=== PATIENT | male | born 1980 | race Caucasian/White ===

== ENCOUNTER → 2018-05-17 09:09 | Outpatient (CLI) | payer BC, SELFPAY ==
[2018-05-17 09:38] LABS: INR 2.5 (1.0-3.5); Prothrombin Time 23.5 sec (9.3-10.8)
== END ==
PROVIDERS: PCP Family Medicine; Visit Provider Family Medicine
DX: Z95.2 Presence of prosthetic heart valve (principal); Z79.01 Long term (current) use of anticoagulants
CPT/HCPCS: 36415; 85610

== ENCOUNTER → 2018-05-31 02:29 | Outpatient (CLI) | payer BC, SELFPAY ==
[2018-05-31 09:34] LABS: INR 2.9 (1.0-3.5); Prothrombin Time 26.9 sec (9.3-10.8)
== END ==
PROVIDERS: PCP Family Medicine; Visit Provider Family Medicine
DX: Z79.01 Long term (current) use of anticoagulants (principal); Z95.2 Presence of prosthetic heart valve
CPT/HCPCS: 36415; 85610

== ENCOUNTER 2018-06-02 14:49 | Emergency (ER) | payer BC, SELFPAY ==
[2018-06-02] VITALS (14 sets, daily range): BP systolic 117–143; BP diastolic 77–90; PULSE 71–92; RESP 18; TEMP 36.6; O2SAT 95–98
[2018-06-02] MEDS: FAMOTIDINE 20 MG/50 ML BAG 50 MG (15:00)
[2018-06-02] MEDS: Normal Saline 1,000 ML 1000 ML IV (15:00)
[2018-06-02] MEDS: methylPREDNISolone SUCC 125 MG VIAL (15:01)
--- NOTE | 2018-06-02 15:03 | ED.GENADUL_ITS ---
Disposition Clinical Impression: Allergy to bee sting Disposition: HOME Condition: Improving Instructions: Insect Bite or Sting (ED), General Allergic Reaction (ED) Additional Instructions: Drink plenty of fluids and get plenty of rest. Try to continue the steroids until finished. If you develop side effects such as jittery feeling or difficulty sleeping and your rash and symptoms are completely resolved, you can consider stopping the steroid after 3 days. Take Benadryl as needed and directed for itching. Follow-up with your primary care doctor within the next week for re-evaluation and recheck of your INR. Return to the emergency department with any worsening or new concerning symptoms. Prescriptions: Prednisone 20 mg PO DIRECTED PRN #12 tablet PRN Reason: Medical Decision Making - Medical Decision Making 1500 -- 37-year-old male with history of aortic valve replacement and aortic aneurysm who presents with pruritic rash, facial swelling and funny feeling in throat after bee sting to lower extremities 1 hour prior to arrival. No history of anaphylaxis to bee stings. Took Benadryl 50 mg prior to arrival. No difficulty swallowing or vomiting. Patient speaking in full sentences, airway intact and he appears in no acute distress. Lungs clear to auscultation. Vitals within normal limits. At this point I do not see any indication for epinephrine. Will place an IV, bolus IV fluids, and give Pepcid and Solu-Medrol IV and reassess. 1600 -- patient feels much better. Rash is improving and erythema on face near resolved. Explained to patient we will observe for approximately another hour to make sure symptoms are continuing to improve and he is agreeable. 1705 -- patient feels much better and feels good to go home. Lungs clear to auscultation. Vitals within normal limits. Good oxygen saturation. We will send home with prescription of prednisone. Patient had initially stated that he has had a jittery feeling after taking prednisone for a previous bee sting. Explained to him that this can be a common reaction but considering the benefit versus risk ratio it would be important for him to take the prescription as long as possible for allergic reaction and he is agreeable. There also appears to be an interaction with prednisone and Coumadin but it could increase or decrease the INR. Patient states he recently had his INR checked and it was normal. States his next check is 1 month from now. We will also recommend he continue the prednisone considering the benefit versus risk ratio for allergic reaction. Patient is instructed to follow-up with his primary care doctor within the next week for reevaluation and to recheck his INR. He is instructed to return immediately with any concerns. History of Present Illness - General Chief complaint: Allergic Stated complaint: ALLERGIC REACTION/BEE Time Seen by Provider: 06/02/18 15:02 Source: patient Mode of arrival: ambulatory Limitations: no limitations - History of Present Illness Initial comments: Patient is a 37-year-old male who presents to the ED with complaint of itchy rash after multiple bee stings 1 hour prior to arrival. Patient states he thinks he was stung by 3 yellow jackets in his bilateral lower extremities. Patient states shortly after he developed itching all over as well as rash on his forearms, and redness to face and neck. He is also complaining of a funny feeling in his throat. He denies difficulty swallowing, difficulty breathing, nausea, vomiting or syncope. Patient states he has had previous similar allergy to bee stings with rash but not any throat or respiratory symptoms. Denies history of anaphylaxis to bee stings. Denies having an EpiPen. - Related Data Aspirin 81 mg PO DAILY tab-cap 03/29/18 Ibuprofen 800 mg PO PRN 03/29/18 Metoprolol [Lopressor] 50 mg PO BID tab-cap 03/29/18 Sennosides/Docusate Sodium [Senna-Docusate Sodium Tablet] 2 tab-cap PO DAILY PRN tab-cap 03/29/18 Metoprolol Tartrate 100 mg PO BID #180 tab-cap 04/23/18 Warfarin Sodium 0 PO as directed #180 tab-cap 04/23/18 Warfarin Sodium 2.5 mg PO DIR #100 tab 04/23/18 Prednisone 20 mg PO DIRECTED PRN #12 tablet 06/02/18 Allergies Allergy/AdvReac Type Severity Reaction Status Date / Time No Known Allergies Allergy Unverified 03/29/18 13:47 Review of Systems Constitutional: denies: chills, fever Eyes: denies: eye pain ENT: denies: ear pain, dental pain Respiratory: denies: cough, shortness of breath Cardiovascular: denies: chest pain, dyspnea on exertion Gastrointestinal: denies: abdominal pain, nausea, vomiting Genitourinary: denies: urgency, dysuria, frequency Musculoskeletal: denies: back pain Skin: denies: rash, lesions Neurological: denies: headache, weakness, numbness Past Medical History - Past Medical History Bicuspid aortic valve, aortic aneurysm Surgical history: other (AV replacement) - Social History Smoking status: never smoker Alcohol use: occasionally Drug use: none General Exam - General Limitations: no limitations General appearance: alert, in no apparent distress - Eye Eye exam: Present: PERRL, EOMI - ENT ENT exam: Present: normal orophraynx, mucous membranes moist, TM's normal bilaterally - Neck Neck exam: Present: normal inspection - Respiratory Respiratory exam: Present: normal lung sounds bilaterally. Absent: respiratory distress, wheezes, rales, rhonchi, stridor - Cardiovascular Cardiovascular Exam: Present: regular rate, normal rhythm. Absent: bradycardia , tachycardia - GI/Abdominal GI/Abdominal exam: Present: soft, normal bowel sounds. Absent: distended, tenderness, guarding, rebound, rigid - Neurological Exam Neurological exam: Present: alert, oriented X3 - Psychiatric Psychiatric exam: Present: normal affect - Skin Skin exam: Present: warm, dry, intact, other (Erythema noted to face and neck. Urticaria noted to bilateral palms and volar distal forearms.) Course Vital Signs - 24 hr 06/02/18 14:52 Temperature 97.9 F Pulse 92 H Respiratory 18 Rate Blood Pressure 143/90 Pulse Oximetry 95
== END 2018-06-02 17:15 | disposition home or self-care (01) ==
PROVIDERS: Emergency Provider Physician Assistant; PCP Family Medicine
DX: T63.411A Toxic effect of venom of centipedes and venomous millipedes, accidental (unintentional), initial encounter (principal); R21 Rash and other nonspecific skin eruption; R60.0 Localized edema; L53.9 Erythematous condition, unspecified; Z91.030 Bee allergy status
CPT/HCPCS: 36416; 82962; 96361; 96365; 96375; 99284; J2930

== ENCOUNTER 2018-06-09 11:04 | Outpatient (RCR) | payer BC, SELFPAY | END 2018-06-11 23:59 | disposition home or self-care (01) | LOC: CR 11:04 | PROVIDERS: PCP Family Medicine; Visit Provider Family Medicine | DX: Z95.2 Presence of prosthetic heart valve (principal); Z51.89 Encounter for other specified aftercare | CPT/HCPCS: S9472 ==

== ENCOUNTER 2018-06-17 12:11 | Outpatient (RCR) | payer BC, SELFPAY | END 2018-07-11 23:59 | disposition home or self-care (01) | LOC: CR 12:11 | PROVIDERS: PCP Family Medicine; Visit Provider Family Medicine | DX: Z51.89 Encounter for other specified aftercare (principal); Z95.2 Presence of prosthetic heart valve ==

== ENCOUNTER 2018-06-30 08:47 | Outpatient (CLI) | payer BC, SELFPAY ==
[2018-06-30 10:27] LABS: INR 2.6 (1.0-3.5); Prothrombin Time 24.6 sec (9.3-10.8)
== END 2018-06-30 09:07 ==
PROVIDERS: PCP Family Medicine; Visit Provider Family Medicine
DX: Z95.2 Presence of prosthetic heart valve (principal); Z79.01 Long term (current) use of anticoagulants
CPT/HCPCS: 36415; 85610

== ENCOUNTER 2018-07-09 13:20 | Outpatient (RCR) | payer BC, SELFPAY | END 2018-07-11 23:59 | disposition home or self-care (01) | LOC: CR 13:20 | PROVIDERS: PCP Family Medicine; Visit Provider Family Medicine | DX: Z95.2 Presence of prosthetic heart valve (principal); Z51.89 Encounter for other specified aftercare | CPT/HCPCS: S9472 ==

== ENCOUNTER 2018-08-02 11:49 | Outpatient (RCR) | payer BC, SELFPAY | END 2018-08-11 23:59 | disposition home or self-care (01) | LOC: CR 11:49 | PROVIDERS: PCP Family Medicine; Visit Provider Family Medicine | DX: Z95.2 Presence of prosthetic heart valve (principal); Z51.89 Encounter for other specified aftercare | CPT/HCPCS: S9472 ==

== ENCOUNTER 2018-10-08 08:02 | Outpatient (CLI) | payer BC, SELFPAY ==
[2018-10-08 08:52] LABS: INR 3.1 (1.0-3.5); Prothrombin Time 31.8 sec (9.3-11.0)
== END 2018-10-08 08:22 ==
PROVIDERS: PCP Family Medicine; Visit Provider Family Medicine
DX: Z95.2 Presence of prosthetic heart valve (principal); Z79.01 Long term (current) use of anticoagulants
CPT/HCPCS: 36415; 85610

== ENCOUNTER 2018-12-15 07:44 | Outpatient (CLI) | payer BC, SELFPAY ==
[2018-12-15 08:30] LABS: Prothrombin Time 29.8 sec (9.3-11.0)
[2018-12-15 08:35] LABS: INR 2.9 (0.9-1.1)
== END 2018-12-15 08:04 ==
PROVIDERS: PCP Family Medicine; Visit Provider Family Medicine
DX: Z95.2 Presence of prosthetic heart valve (principal); Z79.01 Long term (current) use of anticoagulants
CPT/HCPCS: 36415; 85610

== ENCOUNTER 2019-01-27 07:37 | Outpatient (CLI) | payer BC, SELFPAY ==
[2019-01-27 08:18] LABS: INR 2.1 (0.9-1.1); Prothrombin Time 21.2 sec (9.3-11.0)
== END 2019-01-27 07:57 ==
PROVIDERS: PCP Family Medicine; Visit Provider Family Medicine
DX: Z79.01 Long term (current) use of anticoagulants (principal); Z95.2 Presence of prosthetic heart valve
CPT/HCPCS: 36415; 85610

== ENCOUNTER 2019-02-14 07:45 | Outpatient (CLI) | payer BC, SELFPAY ==
[2019-02-14 08:09] LABS: INR 2.5 (0.9-1.1); Prothrombin Time 25.5 sec (9.3-11.0)
== END 2019-02-14 08:05 ==
PROVIDERS: PCP Family Medicine; Visit Provider Family Medicine
DX: Z95.2 Presence of prosthetic heart valve (principal); Z79.01 Long term (current) use of anticoagulants
CPT/HCPCS: 36415; 85610

== ENCOUNTER 2019-05-30 07:27 | Outpatient (CLI) | payer BC, SELFPAY ==
[2019-05-30 08:27] LABS: INR 3.7 (0.9-1.1); Prothrombin Time 37.6 sec (9.3-11.0)
== END 2019-05-30 07:47 ==
PROVIDERS: PCP Family Medicine; Visit Provider Family Medicine
DX: Z95.2 Presence of prosthetic heart valve (principal); Z79.01 Long term (current) use of anticoagulants
CPT/HCPCS: 36415; 85610

== ENCOUNTER 2019-06-10 07:00 | Outpatient (CLI) | payer BC, SELFPAY ==
[2019-06-10 07:48] LABS: INR 2.2 (0.9-1.1); Prothrombin Time 22.3 sec (9.3-11.0)
== END 2019-06-10 07:20 ==
PROVIDERS: PCP Family Medicine; Visit Provider Family Medicine
DX: Z79.01 Long term (current) use of anticoagulants (principal)
CPT/HCPCS: 36415; 85610

== ENCOUNTER 2019-07-08 07:44 | Outpatient (CLI) | payer BC, SELFPAY ==
[2019-07-08 08:53] LABS: INR 2.8 (0.9-1.1); Prothrombin Time 27.4 sec (9.3-11.0)
== END 2019-07-08 08:04 ==
PROVIDERS: PCP Family Medicine; Visit Provider Family Medicine
DX: Z79.01 Long term (current) use of anticoagulants (principal)
CPT/HCPCS: 36415; 85610

== ENCOUNTER 2019-09-23 07:44 | Outpatient (CLI) | payer BC, SELFPAY ==
[2019-09-23 08:40] LABS: INR 3.5 (0.9-1.1); Prothrombin Time 34.2 sec (9.3-11.0)
== END 2019-09-23 08:04 ==
PROVIDERS: PCP Family Medicine; Visit Provider Family Medicine
DX: Z79.01 Long term (current) use of anticoagulants (principal); Z95.2 Presence of prosthetic heart valve
CPT/HCPCS: 36415; 85610

== ENCOUNTER 2019-11-25 07:52 | Outpatient (CLI) | payer BC, SELFPAY ==
[2019-11-25 08:25] LABS: INR 2.3 (0.9-1.1); Prothrombin Time 22.3 sec (9.3-11.0)
== END 2019-11-25 08:12 ==
PROVIDERS: PCP Family Medicine; Visit Provider Family Medicine
DX: Z95.2 Presence of prosthetic heart valve (principal); Z79.01 Long term (current) use of anticoagulants
CPT/HCPCS: 36415; 85610

== ENCOUNTER 2019-12-16 07:43 | Outpatient (CLI) | payer BC, SELFPAY ==
[2019-12-16 08:16] LABS: INR 3.1 (0.9-1.1); Prothrombin Time 30.7 sec (9.3-11.0)
== END 2019-12-16 08:03 ==
PROVIDERS: PCP Family Medicine; Visit Provider Family Medicine
DX: Z79.01 Long term (current) use of anticoagulants (principal); Z95.2 Presence of prosthetic heart valve
CPT/HCPCS: 36415; 85610

== ENCOUNTER 2020-05-03 02:17 | Outpatient (CLI) | payer BC, SELFPAY | END 2020-05-03 02:37 | PROVIDERS: PCP Nurse Practitioner Family; Visit Provider Nurse Practitioner Family | DX: I45.9 Conduction disorder, unspecified (principal); I47.1 Supraventricular tachycardia; I49.3 Ventricular premature depolarization | CPT/HCPCS: 0296T ==

== ENCOUNTER 2020-05-07 08:59 | Emergency (ER) | payer BC, SELFPAY ==
[2020-05-07 09:04] VITALS: BP 158/103; PULSE 67; RESP 20; TEMP 36.2; O2SAT 100
--- NOTE | 2020-05-07 09:05 | ED.GENADUL_ITS ---
Discharge Plan Disposition Patient Disposition: HOME Condition: Improving Discharge Details Chief Complaint: Laceration Clinical Impression: Laceration of leg, left Primary Care Provider: Umu Pascual ED Provider: Qamar Fortune Home Meds and New Rx's Prescriptions: New cephalexin 500 mg capsule 500 mg PO TID 3 Days Qty: 9 RF: 0 Continued warfarin 2.5 mg tablet See Rx Instructions PO DAILY RF: 0 aspirin 81 MG tablet,chewable 81 mg PO DAILY RF: 0 metoprolol tartrate 100 mg tablet 100 mg PO BID Qty: 180 RF: 4 warfarin 5 mg tablet See Rx Instructions PO DAILY Qty: 90 RF: 8 Discharge Instructions Instructions: Laceration (ED) Additional Instructions: Return on morning for wound check. Your INR today was 3.6. Please take antibiotics as prescribed. Return sooner if you develop a fever, foul-smelling discharge or any other acute concerns. May elevate to reduce discomfort. You are to be nonweightbearing with use of crutches until being reevaluated on . Medical Decision Making 39-year-old male who was struck in the left anterior tibia by a heavy metal door, suffering a large laceration. Patient was as anesthetized, liberally irrigated, examined in a bloodless field without evidence of foreign body. He was closed with 19 total sutures, 9 of which were horizontal mattress sutures. I placed him in a posterior splint for immobilization for 3 days and will have him return for splint removal and wound check on this . He is given Keflex for 3 days as I feel this is an inherently contaminated wound. HPI General Mode of arrival: ambulatory . Date/Time Provider Initiated Documentation: 05/07/20 09:03 . Limitations to Documentation: no limitations . Information obtained by: patient . History of Present Illness 39 year old M presents to the emergency department with the chief complaint of Left anterior tibial laceration , described as moderate, Quality is described as dull and constant, and is localized to the left and lower extremity. Patient reports no radiation. Patient started experiencing this minute(s) and it has been constant. No relieving factors improve symptom(s), No exacerbating factors reported . Patient notes denies denies other symptoms and headaches. Patient did receive the following treatments prior to arrival, none Related Data Home Medications Medication Instructions Recorded Confirmed aspirin 81 mg PO DAILY tab-cap 03/29/18 05/07/20 warfarin 2.5 mg tablet See Rx Instructions PO DAILY 06/23/18 05/07/20 metoprolol tartrate 100 mg tablet 100 mg PO BID #180 tab 08/15/19 05/07/20 warfarin 5 mg tablet See Rx Instructions PO DAILY #90 12/30/19 05/07/20 tab cephalexin 500 mg PO TID 3 Days #9 cap 05/07/20 Previous Rx's Medication Instructions Recorded metoprolol tartrate 100 mg tablet 100 mg PO BID #180 tab 08/15/19 warfarin 5 mg tablet See Rx Instructions PO DAILY #90 12/30/19 tab cephalexin 500 mg PO TID 3 Days #9 cap 05/07/20 Allergies Allergy/AdvReac Type Severity Reaction Status Date / Time No Known Allergies Allergy Unverified 05/07/20 09:08 Review of Systems Narrative: No other injury. States he believes his tetanus is up-to-date. No numbness or tingling. 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 Father , at 71 from multiple myeloma Heart disease Multiple myeloma Hypertension Sister No problems noted. Grandfather Diabetes Essential hypertension Personal history of malignant neoplasm PROSTATE Grandfather Personal history of malignant neoplasm LUNG Grandmother Personal history of malignant neoplasm LUNG/BREAST Grandmother Diabetes Son No problems noted. Son No problems noted. Daughter No problems noted. Maternal Grandfather , at 90 Diabetes Maternal Grandmother , at 85 of lung cancer Lung cancer Paternal Grandfather , at 75 of lung cancer Lung cancer Diabetes Paternal Grandmother , at 85 Diabetes Social History (Updated 04/30/20 @ 14:44 by Anjelica Beyer) Smoking/Tobacco Use Status: Former Tobacco Use Quit Date: 10/12/06 Tobacco: How many years used: 3 Alcohol Intake: current Alcohol Intake frequency: a few times a week Alcohol type: beer Drug use: Never Substance use type: does not use Caregiver/Support person: No Communication Needs: None Do you need help understanding health information?: Never Pets and animals: Yes Pets and animals: dog(s) Sexually active: Yes Do you think of yourself as: straight/heterosexual What is your relationship status?: How often do you talk on the phone with friends or family?: once per week How often do you get together with friends or relatives?: twice per week How often do you attend confucianism or mormonism services?: 4 or more times per year Do you belong to any clubs or organized social groups?: yes Panel score (0-1 are the most socially isolated patients): 4 What type of physical activity do you participate in: walking Duration: 15-30 minutes/day Frequency: 3-4 times per week Seatbelt use: always Helmet use: Yes Drive intox or ride w/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 Pleasant, well groomed, interactive. HEAD: Normocephalic, atraumatic ENT: Mucous membranes moist, oropharynx unremarkable, External ear exam unremarkable EYES: PERRL, EOMI NECK: Full ROM, no MARK, no menigismus CHEST/RESP: Nontender, clear to auscultation bilateral, no wheeze/rhonchi/rales CARDIOVASCULAR: RRR, mechanical click. EXT: Full ROM, left anterior tibia with vertically oriented approximately 15 cm laceration Neuro: Grossly normal neurologic exam, conversant, interactive. Psych: Speech fluent, thoughts congruent, affect normal Procedures Laceration Laceration 1: Site: lower extremity Side (If applicable): left Size (cm): 17 Description: linear and irregular Depth: simple, single layer Local Anesthetic: Lidocaine 1% Amount of anesthesia used (mL): 10 Pre-repair: wound explored, irrigated extensively and deep structures intact Skin layer closed with: other (Prolene) Size (cm): 3-0 Technique: horizontal mattress
[2020-05-07 09:36] LABS: INR 3.6 (0.9-1.1); Prothrombin Time 35.4 sec (9.3-11.0)
== END 2020-05-07 10:31 | disposition home or self-care (01) ==
PROVIDERS: Emergency Provider Emergency Medicine; PCP Nurse Practitioner Family
DX: S81.812A Laceration without foreign body, left lower leg, initial encounter (principal); W22.8XXA Striking against or struck by other objects, initial encounter; Z79.01 Long term (current) use of anticoagulants; Z95.2 Presence of prosthetic heart valve
CPT/HCPCS: 12005; 36415; 99283; 85610; 99281; E0114

== ENCOUNTER 2020-05-10 08:05 | Emergency (ER) | payer BC, SELFPAY ==
[2020-05-10 08:09] VITALS: BP 136/93; PULSE 77; RESP 16; TEMP 36.4; O2SAT 100
--- NOTE | 2020-05-10 08:28 | W.ED.GENAD ---
Discharge Plan Disposition Patient Disposition: HOME Condition: Stable Discharge Details Chief Complaint: Recheck Clinical Impression: Encounter for wound re-check Primary Care Provider: Umu Pascual ED Provider: Qamar Fortune Home Meds and New Rx's Prescriptions: Continued warfarin 2.5 mg tablet See Rx Instructions PO DAILY RF: 0 aspirin 81 MG tablet,chewable 81 mg PO DAILY RF: 0 metoprolol tartrate 100 mg tablet 100 mg PO BID Qty: 180 RF: 4 warfarin 5 mg tablet See Rx Instructions PO DAILY Qty: 90 RF: 8 Discharge Instructions Additional Instructions: Begin to wean from the splint. May remove for bathing and well at home. Elevate to reduce pain and mild swelling. May gently wash with soap and water, pat dry and then let air dry before redressing. Return May 20 or May [address] Fortune will be working Thursday starting at 3 PM. Return for fever, foul-smelling discharge, or any other acute concerns. Medical Decision Making 39-year-old male presents from home for wound recheck. He was seen by me and had a laceration repaired on May 07. He has been in a posterior splint since that time with nonweightbearing. The wound is well-appearing with good wound edge margins. The wound was undressed, the splint taken down. I will have him continue the splint intermittently over 3 to 5 days time. He will subsequently follow-up for recheck in the ER and probable suture removal. HPI General Date/Time Provider Initiated Documentation: 05/10/20 08:28. History of Present Illness 39 year old M presents to the emergency department with the chief complaint of Wound check left leg laceration, described as mild, and is localized to the left and lower extremity. Patient reports no radiation. Patient started experiencing this day(s) and it has been constant. No relieving factors improve symptom(s), No exacerbating factors reported . Patient notes denies fever/chills and rash. Related Data Home Medications Medication Instructions Recorded Confirmed aspirin 81 mg PO DAILY tab-cap 03/29/18 05/07/20 warfarin 2.5 mg tablet See Rx Instructions PO DAILY 06/23/18 05/07/20 metoprolol tartrate 100 mg tablet 100 mg PO BID #180 tab 11/04/19 07/27/20 warfarin 5 mg tablet See Rx Instructions PO DAILY #90 12/30/19 05/07/20 tab Previous Rx's Medication Instructions Recorded metoprolol tartrate 100 mg tablet 100 mg PO BID #180 tab 08/15/19 warfarin 5 mg tablet See Rx Instructions PO DAILY #90 12/30/19 tab Allergies Allergy/AdvReac Type Severity Reaction Status Date / Time No Known Allergies Allergy Unverified 05/07/20 09:08 General Stated Complaint: Recheck BELEN: 5 Review of Systems Narrative: No fever, chills, foul-smelling discharge. Feeling well. Mild pain only. 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 Father , at 71 from multiple myeloma Heart disease Multiple myeloma Hypertension Sister No problems noted. Grandfather Diabetes Essential hypertension Personal history of malignant neoplasm PROSTATE Grandfather Personal history of malignant neoplasm LUNG Grandmother Personal history of malignant neoplasm LUNG/BREAST Grandmother Diabetes Son No problems noted. Son No problems noted. Daughter No problems noted. Maternal Grandfather , at 90 Diabetes Maternal Grandmother , at 85 of lung cancer Lung cancer Paternal Grandfather , at 75 of lung cancer Lung cancer Diabetes Paternal Grandmother , at 85 Diabetes Social History (Updated 04/30/20 @ 14:44 by Anjelica Beyer) Smoking/Tobacco Use Status: Former Tobacco Use Quit Date: 10/12/06 Tobacco: How many years used: 3 Alcohol Intake: current Alcohol Intake frequency: a few times a week Alcohol type: beer Drug use: Never Substance use type: does not use Caregiver/Support person: No Communication Needs: None Do you need help understanding health information?: Never Pets and animals: Yes Pets and animals: dog(s) Sexually active: Yes Do you think of yourself as: straight/heterosexual What is your relationship status?: How often do you talk on the phone with friends or family?: once per week How often do you get together with friends or relatives?: twice per week How often do you attend sabianism or roman catholic services?: 4 or more times per year Do you belong to any clubs or organized social groups?: yes Panel score (0-1 are the most socially isolated patients): 4 What type of physical activity do you participate in: walking Duration: 15-30 minutes/day Frequency: 3-4 times per week Seatbelt use: always Helmet use: Yes Drive intox or ride w/intox driver helper: No Do you feel safe in your relationship?: Yes Exam Narrative Exam Narrative: GEN: awake, alert, oriented 3. Pleasant, well groomed, interactive. HEAD: Normocephalic, atraumatic EXT: Full ROM, left pretibial area with healing vertically oriented large laceration. 2+ DP. Normal sensation. Minimal dependent ecchymosis inferior to the wound margin Neuro: Grossly normal neurologic exam, conversant, interactive. Psych: Speech fluent, thoughts congruent, affect normal Course Vital Signs Vital signs: Vital Signs Temperature 36.4 C L 05/10/20 08:09 Pulse 77 05/10/20 08:09 Respiratory Rate 16 05/10/20 08:09 Blood Pressure 136/93 H 05/10/20 08:09 Pulse Oximetry 100 05/10/20 08:09 Temperature 36.4 C L 05/10/20 08:09 Temperature Source Temporal Artery Scan 05/10/20 08:09 Pulse 77 05/10/20 08:09 Respiratory Rate 16 05/10/20 08:09 Respiratory Effort Non-Labored 05/10/20 08:12 Blood Pressure 136/93 H 05/10/20 08:09 Blood Pressure Position Sitting 05/10/20 08:09 Pulse Oximetry 100 05/10/20 08:09 Oxygen Delivery Method Room Air 05/10/20 08:09 Oxygen Flow Rate 0 05/10/20 08:09 Pain Level 4 05/10/20 08:09
== END 2020-05-10 08:35 | disposition home or self-care (01) ==
PROVIDERS: Emergency Provider Emergency Medicine; PCP Nurse Practitioner Family
DX: Z48.01 Encounter for change or removal of surgical wound dressing (principal); S81.812A Laceration without foreign body, left lower leg, initial encounter; W22.8XXA Striking against or struck by other objects, initial encounter

== ENCOUNTER 2020-05-21 16:41 | Emergency (ER) | payer BC, SELFPAY ==
[2020-05-21 16:44] VITALS: BP 130/80; PULSE 80; RESP 20; TEMP 37; O2SAT 99
--- NOTE | 2020-05-21 16:58 | NUR.NOTE ---
Nursing Note:Lab drawn @ 9170
--- NOTE | 2020-05-21 16:59 | W.ED.GENAD ---
Discharge Plan Disposition Patient Disposition: HOME Condition: Stable Discharge Details Chief Complaint: SutureRem Clinical Impression: Encounter for removal of sutures Primary Care Provider: Umu Pascual ED Provider: Qamar Fortune Home Meds and New Rx's Prescriptions: Continued warfarin 2.5 mg tablet See Rx Instructions PO DAILY RF: 0 aspirin 81 MG tablet,chewable 81 mg PO DAILY RF: 0 metoprolol tartrate 100 mg tablet 100 mg PO BID Qty: 180 RF: 4 warfarin 5 mg tablet See Rx Instructions PO DAILY Qty: 90 RF: 8 Discharge Instructions Additional Instructions: Resume normal routine activities. I recommend he continue to bandage the area for the next 10 days. Return for any acute concerns. Please follow-up with your doctor for results of your INR test today. Medical Decision Making 39-year-old male presents from home for suture removal after being seen in the emergency department by myself approximately 2 weeks ago. The wound is well-appearing, the sutures were removed, Steri-Strips were placed to protect the area. He is stable and appropriate for discharge. HPI General Mode of arrival: ambulatory. Date/Time Provider Initiated Documentation: 05/21/20 16:58. Limitations to Documentation: no limitations. Information obtained by: patient. History of Present Illness 39 year old M presents to the emergency department with the chief complaint of Suture removal, no complaints, Related Data Home Medications Medication Instructions Recorded Confirmed aspirin 81 mg PO DAILY tab-cap 03/29/18 05/21/20 warfarin 2.5 mg tablet See Rx Instructions PO DAILY 06/23/18 05/21/20 metoprolol tartrate 100 mg tablet 100 mg PO BID #180 tab 08/15/19 05/21/20 warfarin 5 mg tablet See Rx Instructions PO DAILY #90 12/30/19 05/21/20 tab Previous Rx's Medication Instructions Recorded metoprolol tartrate 100 mg tablet 100 mg PO BID #180 tab 08/15/19 warfarin 5 mg tablet See Rx Instructions PO DAILY #90 12/30/19 tab Allergies Allergy/AdvReac Type Severity Reaction Status Date / Time No Known Allergies Allergy Unverified 05/21/20 16:48 General Stated Complaint: SutureRem BELEN: 5 Review of Systems Narrative: No bleeding or fever, no discharge. Has been well. 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 Father , at 71 from multiple myeloma Heart disease Multiple myeloma Hypertension Sister No problems noted. Grandfather Diabetes Essential hypertension Personal history of malignant neoplasm PROSTATE Grandfather Personal history of malignant neoplasm LUNG Grandmother Personal history of malignant neoplasm LUNG/BREAST Grandmother Diabetes Son No problems noted. Son No problems noted. Daughter No problems noted. Maternal Grandfather , at 90 Diabetes Maternal Grandmother , at 85 of lung cancer Lung cancer Paternal Grandfather , at 75 of lung cancer Lung cancer Diabetes Paternal Grandmother , at 85 Diabetes Social History (Updated 04/30/20 @ 14:44 by Anjelica Beyer) Smoking/Tobacco Use Status: Former Tobacco Use Quit Date: 10/12/06 Tobacco: How many years used: 3 Alcohol Intake: current Alcohol Intake frequency: a few times a week Alcohol type: beer Drug use: Never Substance use type: does not use Caregiver/Support person: No Communication Needs: None Do you need help understanding health information?: Never Pets and animals: Yes Pets and animals: dog(s) Sexually active: Yes Do you think of yourself as: straight/heterosexual What is your relationship status?: How often do you talk on the phone with friends or family?: once per week How often do you get together with friends or relatives?: twice per week How often do you attend muslim or islam services?: 4 or more times per year Do you belong to any clubs or organized social groups?: yes Panel score (0-1 are the most socially isolated patients): 4 What type of physical activity do you participate in: walking Duration: 15-30 minutes/day Frequency: 3-4 times per week Seatbelt use: always Helmet use: Yes Drive intox or ride w/intox 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 Sutures in place and subsequently removed. Course Vital Signs Vital signs: Vital Signs Temperature 37 C 05/21/20 16:44 Pulse 80 05/21/20 16:44 Respiratory Rate 05/21/20 16:44 Blood Pressure 130/80 05/21/20 16:44 Pulse Oximetry 99 05/21/20 16:44 Temperature 37 C 05/21/20 16:44 Temperature Source Skin 05/21/20 16:44 Pulse 80 05/21/20 16:44 Respiratory Rate 20 05/21/20 16:44 Blood Pressure 130/80 05/21/20 16:44 Blood Pressure Position Sitting 05/21/20 16:44 Pulse Oximetry 99 05/21/20 16:44 Oxygen Delivery Method Room Air 05/21/20 16:44 Oxygen Flow Rate 0 05/21/20 16:44 Pain Level 0 05/21/20 16:44
[2020-05-21 17:16] LABS: INR 2.9 (0.9-1.1); Prothrombin Time 28.8 sec (9.3-11.0)
--- NOTE | 2020-05-24 10:27 | ZIOP_ITS ---
Date of service: 05/24/20 Time of Service: 10:27 [facility] Education And Outreach Coordinator Referring Provider:: Samara Indications:: Conduction disorder Note: This is a 12-day Holter monitor ordered for indication of conduction disorder. ?The patient was in normal sinus rhythm for the majority of the recording with an average heart rate of 76 bpm. ?There were rare isolated supraventricular ectopic beats as well as were rare ventricular ectopic beats. ?There were no runs of SVT or VT ?There were no episodes of atrial fibrillation, no pauses grade 3 seconds no evidence of high degree heart block. ?Patient triggered events were associated with sinus rhythm and rare ventricular ectopic beats.
== END 2020-05-21 17:03 | disposition home or self-care (01) ==
PROVIDERS: Emergency Provider Emergency Medicine; PCP Nurse Practitioner Family
DX: I49.3 Ventricular premature depolarization; I45.9 Conduction disorder, unspecified; S81.812D Laceration without foreign body, left lower leg, subsequent encounter; W22.8XXD Striking against or struck by other objects, subsequent encounter; Z48.02 Encounter for removal of sutures; Z79.01 Long term (current) use of anticoagulants; Z95.2 Presence of prosthetic heart valve
CPT/HCPCS: 36415; 99283; 85610; 99281

== ENCOUNTER 2020-10-24 04:49 | Outpatient (CLI) | payer BC, SELFPAY ==
[2020-10-24 13:32] LABS: Hemoglobin A1C 5.7 % (<5.7)
[2020-10-24 13:55] LABS: Anion Gap 6.4 mmol/L (3-11); BUN 20 mg/dL (7-18); CO2 29.6 mmol/L (21.0-32.0); Calcium 9.2 mg/dL (8.5-10.1); Calculated LDL 150 mg/dL (<100); Chloride 100 mmol/L (98-107); Cholesterol 244 mg/dL (<200); Glucose 122 mg/dL (74-106); HDL Cholesterol 54 mg/dL (40-60); Potassium 4.3 mmol/L (3.5-5.1); Sodium 136 mmol/L (136-145); Triglyceride 201 mg/dL (<150)
== END 2020-10-24 05:09 ==
PROVIDERS: PCP Nurse Practitioner Family; Visit Provider Nurse Practitioner Family
DX: E78.5 Hyperlipidemia, unspecified (principal)
CPT/HCPCS: 36415; 80048; 80061; 83036

== ENCOUNTER 2020-11-19 03:21 | Outpatient (CLI) | payer BC, SELFPAY ==
[2020-11-19 16:35] LABS: INR 2.9 (0.9-1.1)
== END 2020-11-19 03:22 | disposition home or self-care (01) ==
LOC: LBO 03:21
PROVIDERS: PCP Nurse Practitioner Family; Visit Provider Nurse Practitioner Family
DX: Z95.2 Presence of prosthetic heart valve (principal); Z79.01 Long term (current) use of anticoagulants
CPT/HCPCS: 36415; 85610

== ENCOUNTER 2021-04-25 03:41 | Outpatient (CLI) | payer BC, SELFPAY ==
[2021-04-25 11:37] LABS: INR 3.5 (0.9-1.1); Prothrombin Time 33.8 sec (9.3-11.0)
== END 2021-04-25 03:42 | disposition home or self-care (01) ==
LOC: LBO 03:41
PROVIDERS: PCP Nurse Practitioner Family; Visit Provider Family Medicine
DX: I45.89 Other specified conduction disorders (principal); Z95.2 Presence of prosthetic heart valve; Z79.01 Long term (current) use of anticoagulants
CPT/HCPCS: 36415; 85610

== ENCOUNTER 2022-01-02 18:49 | Emergency (ER) | payer BC, SELFPAY ==
[2022-01-02 18:59] VITALS: BP 149/115; PULSE 89; RESP 14; TEMP 36.1; O2SAT 98
--- OUTSIDE RECORDS SUMMARY | 2022-01-02 19:01 | XMS_ITS | Encounter Summary ---
:1980 Author Care Team Providers Name Role Phone Umu Pascual CHAD Primary Care Provider [phone] [facility] Medical Records OTHER [phone] Reason for Visit None recorded. Assessment and Plan 1. Snoring Bakari has loud snoring, wit nessed apneas in sleep, nocturnal gasping, sleep fragmentation, and daytime sleepiness (ESS 10) with a Torrance score of 2/3 indicating a high likelihood of SHANAE. He tends to have a couple of beers a night which may worsen SHANAE and snoring. I discussed the pathophysiology of obstructive sleep apnea and the potential consequences of untreated SHANAE including how it rel ates to his symptoms and comorbidities. I ordered a home sleep study and discussed what will take place the night of the sleep study. I will see him back to review the results as soon as they are available. Drowsy driving precautions were reviewed. I provided greater than 40 minutes in e care of this patient, more than half the time was spent in [id number] counseling. ? home sleep testing (PROC) - pls notify me if inconclusive Discussion Note: None recorded.Patient educational handouts: No information available. Plan of Care Reminders Provider Appointments Office [address], 02/19/2022 [employer] PAVER OPERATOR 8:00AM Lab None ? ? recorded. Referral None ? ? recorded. Procedures Home Sleep ? Testing (PROC) 12/18/2021 Surgeries None ? ? recorded. Imaging None ? ? recorded. Medications Name Start Date ? ? aspirin 81 mg chewable tablet ? Chew 1 tablet every day by oral route. metoprolol tartrate 100 mg tablet ? Take 1 tablet twice a day by oral route. warfarin 5 mg tablet ? Take 1 tablet every day by oral route. Medications Administered None recorded. Vitals Height Weight BMI Blood Pressure 6 ft 221 lbs 30 kg/m2 110/70 mm[Hg] Results Lab Results None recorded. Allergies Code Code System Name Reaction Severity Onset NKDA ? ? ? Problems Name Status Onset Date Source ? Snoring Active 11/28/2021 ? Replacement of Aortic Valve Active 11/28/2021 ? Education about Disorders Requiring Active 11/28/2021 ? Anticoagulation Therapy Procedures None recorded. Vaccine List None recorded. Social History Tobacco Smoking Status Former Smoker Notes: 20 year s ago What is your level of alcohol None consumption? Live alone or with others? with others Do you or have you ever used any N other forms of tobacco or nicotine? What is your level of caffeine Occasional Notes: 2c coffee am 2 /12 oz consumption? can od diet pepsi Are you currently employed? Y Do you use any illicit or N recreational drugs? 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 Past Encounters 12/18/2021 Snoring Annetta Ross NP: [address] [place] [phone], Ph. History of Present Illness Note: <div>Bakari Greene is seen in consultation at the request of Umu Pascual NP for evaluation of snoring.</div><div>
</div><div>Bakari has a medical history to include bicuspid aortic valve, aortic aneurysm (s/p AVR and aneurysm repair) and HLD.</div><div>
</div><div>Lab 10/24/20 BMP glucose 122, BUN 20.</div><div>
</div><div>{{Patient Jairon#}} feels {{his* her}} biggest problem with sleep is {{snoring* waking up a lot not feeling rested}}. This has been going on for many years. He hasstarted to have non restorative sleep over the past few months. {{He* She}} typically goes to bed at{{9 11#}}pm-12am. It takes {{5 3-5#}} minutes to fall asleep. {{He* She}} wakes up {{1 2 3 4-6#}} times a night from {{unknown reason* pain bathroom}} and it takes {{ 2-3#}} minutes to get back to sleep. {{He* She}} gets up at {{5 6 7 8 6-6:30#}}am to start {{his* her}} day. {{He* She}} does not take naps. {{He* She}} has no disturbances to {{his* her}} sleep. {{He* She}} has never had a sleep study.{{He* She}} sleeps {{alone with someone*}} in a bed.</div><div>
</div><div>SLEEP QUALITY: Feels quality of sleep most nights is {{good okay* poor}}.</div><div>
</div><div>
</div><div>DAYTIME ALERTNESS: Reports levelof alertness most days to be {{alert* low energy sleepy very sleepy}}.</div><div>
</div><div>
</div><div>PSYCH SYMPTOMS: {{Has Has not*}} noted worsening memory {{and or*}} concentration. {{Does have* Denies current problems with}} irritability butdenies any depression {{and or*}} anxiety. {{Has Has not*}} noted difficulty with calculations.</div><div>
</div><div>INSOMNIA SYMPTOMS: {{Does have Does not have*}} anactive mind at night when trying to sleep. {{Does have Does not have*}} stressful thoughts interfering with sleep. {{Does* Does not}} watch the clock throughout the night. {{Does Does not*}} worry about getting a good night's sleep. </div><div>
</div><div>BREATHING SYMPTOMS: {{Does have* Does not have}} snoring. {{Does have* Does not have}} witnessed apnea. {{Does have* Does not have}} nocturnal gasping/dyspnea.{{Does have* Does not have}} mouth breathing. {{Does have* Does not have}} nasal congestion at night.</div><div>
</div><div>
</div><div>MOVEMENT SYMPTOMS: {{Does have* Does not have}} tossing & turning. {{Does have Does not have*}} messy sheets in the morning. {{Does have Does not have*}}leg or arm jerks, kicks or twitches in sleep or prior to falling asleep. {{Does Does not*}} have an aching, restless or crawling feeling in legs at night. {{Does Does not*}} have a hard time keeping legs still when trying to sleep. {{Does Does not*}} have muscle cramps or Viktor horses". {{Does Does not*}} have sleep walking or talking.</div><div>
</div><div>
</div><div>DREAM SYMPTOMS: {{Does have Does not have*}} nightmares often that affect ability to sleep. {{Does have Does not have*}} dreams of suffocating/drowning. {{Does Does not*}} dream shortly after falling asleep. {{Does Does not*}} see dreams in the room even whenawake.{{Does Does not*}} see or hear things in the room when falling asleep that aren't really there. {{Does Does not*}} see things in the road when driving that aren't really there. {{Has Has not*}} had someone see then act our their dreams. {{Has Has not*}} accidentally injured themselves while sleeping due to own movements/behaviors.</div><div>
</div><div>CATAPLEXY SYMPTOMS: {{Does have Does not have*}} feel limp, lose strength, or fall asleep whenvery angry, surprised or laughing. {{Does have Does not have*}} leg, arm or face weakness when upset. {{Has Has not*}} had episodes of being unable to move when waking up which is often frightening.</div><div>
</div><div>DRIVING: {{Has Has not*}} fallen asleep or nearly fallen asleep driving. {{Has had Has not had*}} an accident related to drowsy driving or not payingattention. {{Does Does not*}} forget the last few miles or minutes while driving. {{Has Has not*}} driven out of jose e and crossed center line or gone onto shoulder when driving. {{Has Has not*}} had a passenger tell them they look sleepy when driving.</div><div>
</div><div>ESS today 08/04</div><div>Torrance Questionnaire Score /3</div>Review of Systems: ROS as noted in the HPI Review of Systems ? Notes: <div>wakes with dry mouth, j oint pain (right shoulder and elbows).</div><div>He denies having night sweats, nocturnal heartburn, morning headaches or nocturia.</div> Physical Exam ? Notes: <div>General: A&O, well groo med, answers questions appropriately, {{over weight* obese morbidly obese normal weight thin}}. </div><div>HEAD: normocephalic & atraumatic, {{normal appearing chin retrognathia*}}. </div><div>EYES: non icteric .</div><div>NOSE: open nasal passages, septum midline, no polyps or masses . </div><div>THROAT/MOUTH: moist mucous membranes, modified mallampati score {{ 1 2 3 4*}}, tonsils without hypertrophy. Lateral wall narrowing grade {{1 2* 3}}. Tongue scalloping {{is* is not}} noted.</div><div>NECK: suppl e without palpable lymph nodes. </div><div>LUNGS: CTA all ravi. Good air mov ement.</div><div>CARDIO: RRR with valve clicking, no murmur, gallop or thrill. </div><div>ABDOMEN: soft and non tender with positive bowel sounds.</div> <div>MS: Good ROM of all extremities. No cyanosis, clubbing or edema.</div><div >NEURO: A&O. Normal gait.</div><div>PSYCH: Normal mood and affect.</div><div>C UTANEOUS: no overt lesions or rashes</div>
--- NOTE | 2022-01-02 19:04 | ED.GENADUL_ITS ---
Discharge Plan Disposition Patient Disposition: HOME Condition: Improving Discharge Details Clinical Impression: Oral bleeding Primary Care Provider: Umu Pascual ED Provider: Tammy Rich Home Meds and New Rx's Prescriptions: No Action metoprolol tartrate 100 mg tablet 100 mg PO BID Qty: 180 4RF aspirin 81 MG tablet,chewable 81 mg PO DAILY 0RF warfarin 5 mg tablet See Rx Instructions mg PO DAILY Qty: 135 4RF Protocol: Dose Management Condition: Thursday Dose/Route: 7.5 mg Instruction: 1.5 x 5 mg tablets Condition: Thursday Dose/Route: 7.5 mg Instruction: 1.5 x 5 mg tablets Condition: Thursday Dose/Route: 7.5 mg Instruction: 1.5 x 5 mg tablets Condition: Thursday Dose/Route: 7.5 mg Instruction: 1.5 x 5 mg tablets Condition: Dose/Route: Hold Instruction: No doses Condition: Thursday Dose/Route: 7.5 mg Instruction: 1.5 x 5 mg tablets Condition: Thursday Dose/Route: 7.5 mg Instruction: 1.5 x 5 mg tablets Protocol Text: Adjustment Start Date: Thursday01/03/22 INR Value: 2.9 INR Date: 01/02/22 Recheck Date: 01/10/22 Rx Instructions: Take as directed by PCP PO DAILY; amoxicillin-pot clavulanate 875-125 mg Tablet 1 tab BID 0RF Discharge Instructions Instructions: Dental Laceration (ED) Additional Instructions: Continue with the current guaze until you get home. When at home you may gently remove the gauze and apply additional gauze to apply pressure if needed. Please return to the emergency department for recurrent bleeding not relieved by applying 5 minutes of pressure. Please follow-up with your dentist tomorrow as discussed. Do not take your warfarin tonight. Discuss with your dentist when you should re start the warfarin. Referrals: Umu Pascual NP [Primary Care Provider] - 3 days Discharge Data Discharge Date/Time-TO BE ENTERED AT DEPARTURE: 01/02/22 21:04 Medical Decision Making 41-year-old male presents to the ER with chief complaint of bleeding status post a dental extraction of a left upper molar yesterday. He reports that bleeding began around 10 AM this morning after eating some scrambled eggs. He reports he has been intermittently able to get it to stop however since noon it has been mostly continuous. She does take warfarin 5 mg tablet last taken last night. He is alert and oriented, slightly hypertensive nontachycardic. Denies any other associated symptoms. Speaking in full sentences. Past medical history includes prediabetes, hyperlipidemia, aortic valvular di sease. He is status post aortic valve replacement. TXA soaked gauze instructed patient to bite down ordered upon initial presentation. IV ordered with CBC PT/INR. Dr. Hinojosa ER attending at bedside for patient evaluation with me. CBC shows normal hemoglobin hematocrit of 14.9 and 44.6, PT is 28.6 and INR is 2.9. Dr. Hinojosa at bedside for assistance with patient treatment evaluation. He orde red TXA tablet into a paste and applied to the area. He also anesthetized the area with lidocaine epinephrine. Please see his note 2049: Patient reevaluation, bleeding has dramatically Slowed. No active bleeding noted. There is a small ooze around the adjacent molar to where he had the tooth pulled. Patient instructed not to take his warfarin tonight and to follow-up with dentist tomorrow. Instructed on strict return instructions to return if continued bleeding or if it begins to bleed again. He verbalizes understanding. Patient to be discharged home with gauze and an additional TXA paste applied to the adjacent molar. Patient verbalizes understanding and feels comfortable being discharged home. This text was generated using [employer] dictation system, please disregard any oddities of phrase or misspellings. Date: 01/02/22 Time: 20:14 Note: Patient seen, examined, and discussed with CHAD Rich. Oozing blood from tooth extraction site. TXA soaked gauze applied initially and still having small oozing. 1 mL of lidocaine with epinephrine was injected locally. A slurry was made with TXA tablet and applied with gauze to extraction site. Bleeding stopped. Plan to hold warfarin tonight and have patient followup with dentist tomorrow. I agree with treatment plan as discussed/documented With CHAD Rich. HPI General Mode of arrival: ambulatory . Date/Time Provider Initiated Documentation: 01/02/22 18:50 . Limitations to Documentation: no limitations . Information obtained by: patient, RN notes reviewed and old records reviewed . HPI Narrative: 41-year-old male presents to the ER with chief complaint of bleeding status post a dental extraction of a left upper molar yesterday. He reports that bleeding began around 10 AM this morning after eating some scrambled eggs. He reports he has been intermittently able to get it to stop however since noon it has been mostly continuous. She does take warfarin 5 mg tablet last taken last night. He is alert and oriented, slightly hypertensive nontachycardic. Denies any other associated symptoms. Speaking in full sentences. Past medical history includes prediabetes, hyperlipidemia, aortic valvular disease. He is status post aortic valve replacement. Related Data Home Medications Medication Instructions Recorded Confirmed aspirin 81 mg chewable tablet 81 mg PO DAILY tab-cap 03/29/18 01/02/22 warfarin 5 mg tablet See Rx Instructions PO DAILY #135 02/27/21 01/02/22 tab metoprolol tartrate 100 mg tablet 100 mg PO BID #180 tab 10/10/21 01/02/22 amoxicillin 875 mg-potassium 1 tab BID 01/02/22 01/02/22 clavulanate 125 mg tablet Previous Rx's Medication Instructions Recorded warfarin 5 mg tablet See Rx Instructions PO DAILY #135 02/27/21 tab metoprolol tartrate 100 mg tablet 100 mg PO BID #180 tab 10/10/21 Allergies Allergy/AdvReac Type Severity Reaction Status Date / Time No Known Allergies Allergy Verified 01/02/22 19:44 General Stated Complaint: DentalOral BELEN: 3 Review of Systems All systems reviewed & are unremarkable except as noted in HPI and below ENT Ears, Nose, Mouth, and Throat: Reports as per HPI (Bleeding status post dental extraction.) PFSH All Active Problems (Updated 01/02/22 @ 20:56 by Tammy Rich) Oral bleeding (Acute) Olecranon bursitis, left elbow (Acute) Prediabetes (Chronic) Hyperlipidemia (Chronic) Anticoagulated on Coumadin (Chronic) For mechanical aortic valve Rosacea (Chronic) Medical History Aortic valvular disease Congenital bicuspid aortic valve, aortic stenosis, aortic insufficiency, ascending aorta aneurysm s/p AVR 03/2018 Surgical History S/P AVR (aortic valve replacement) (03/16/18) Mechanical valve prosthesis and ascending aorta replacement S/P vasectomy (08/02/10) Family History Mother No problems noted. Father , at 71 from multiple myeloma Heart disease Multiple myeloma Hypertension Sister No problems noted. Grandfather Diabetes Essential hypertension Personal history of malignant neoplasm PROSTATE Grandfather Personal history of malignant neoplasm LUNG Grandmother Personal history of malignant neoplasm LUNG/BREAST Grandmother Diabetes Son No problems noted. Son No problems noted. Daughter No problems noted. Maternal Grandfather , at 90 Diabetes Maternal Grandmother , at 85 of lung cancer Lung cancer Paternal Grandfather , at 75 of lung cancer Lung cancer Diabetes Paternal Grandmother , at 85 Diabetes Social History Smoking/Tobacco Use Status: Former Tobacco Use tobacco type: smokeless tobacco Quit Date: 10/12/06 Tobacco: How many years used: 3 Smokeless tobacco user: chewing tobacco Second Hand Exposure: No Smoking risk assessment performed?: Yes Alcohol Intake: current Alcohol Intake frequency: holidays/special occasions only Alcohol type: beer Drug use: Never Substance use type: does not use Caregiver/Support person: No Household members: spouse and children Housing: house Communication Needs: None Do you need help understanding health information?: Rarely Pets and animals: Yes Pets and animals: dog(s) Sexually active: Yes Do you think of yourself as: straight/heterosexual How often do you talk on the phone with friends or family?: three or more times per week How often do you get together with friends or relatives?: once per week How often do you attend tenriism or pentecostalism services?: 4 or more times per year Do you belong to any clubs or organized social groups?: yes Panel score (0-1 are the most socially isolated patients): 3 Special latisha needs: No Seatbelt use: always Drive intox or ride w/intox milk wagon driver: No Do you feel safe at home: Yes Do you feel safe in your relationship?: Yes Exam Const General: cooperative, healthy appearing and well developed Nutritional Appearance: average body habitus Orientation: alert, awake and oriented x3 HENMT Head: normal to inspection General nose exam: external nose normal Face and sinus: normal facial exam Teeth and gingiva: other (Bleeding noted Left upper Molar) Teeth image: 1. Absent tooth, packing placed with surrounding ecchymosis and a bright red ooze noted just posterior and adjacent to the molar. Throat: posterior oropharynx normal, tonsils normal and uvula midline Course Vital Signs Vital signs: Vital Signs Temperature 36.1 C L 01/02/22 18:59 Pulse 89 01/02/22 18:59 Respiratory Rate 14 01/02/22 18:59 Blood Pressure 149/115 H 01/02/22 18:59 Pulse Oximetry 98 01/02/22 18:59 Temperature 36.1 C L 01/02/22 18:59 Temperature Source Temporal Artery Scan 01/02/22 18:59 Pulse 89 01/02/22 18:59 Respiratory Rate 14 01/02/22 18:59 Blood Pressure 149/115 H 01/02/22 18:59 Blood Pressure Position Supine 01/02/22 18:59 Pulse Oximetry 98 01/02/22 18:59 Oxygen Delivery Method Room Air 01/02/22 18:59 Oxygen Flow Rate 0 01/02/22 18:59 Pain Level 0 01/02/22 18:59
[2022-01-02] MEDS: Tranexamic Acid 1,000 MG/10 ML VIAL 500 MG NS (19:09)
[2022-01-02 19:26] LABS: Abs Immature Grans 0.01 10^3/uL (0.0-0.06); Absolute Basophil Count 0.04 10^3/uL (0.0-0.2); Absolute Eosinophil Count 0.34 10^3/uL (0.0-0.7); Absolute Lymphocyte Count 2.21 10^3/uL (1.2-3.4); Absolute Monocyte Count 0.73 10^3/uL (0.1-0.8); Absolute Neutrophil Count 5.13 10^3/uL (1.2-6.7); Basophils % 0.5; HCT 44.6 % (40.0-50.0); HGB 14.9 g/dL (13.5-17.5); Immature Grans % 0.1; Lymphocytes % 26.1; MCH 30.3 pg (27.0-33.0); MCHC 33.4 % (32.0-36.0); MCV 90.7 fL (80-95); MPV 10.2 fL (8.0-11.0); Monocytes % 8.6; Neutrophils % 60.7; Nucleated RBC 0 %; Platelet Count 291 10^3/uL (130-400); RBC 4.92 10^6/uL (4.36-5.78); RDW 12.2 % (11.8-14.1); RDW-SD 40.7 fL; WBC 8.46 10^3/uL (4.4-10.8)
[2022-01-02 19:46] LABS: INR 2.9 (0.9-1.1); Prothrombin Time 28.6 sec (9.3-11.0)
[2022-01-02] MEDS: Tranexamic Acid 650 MG TAB PO (20:12)
== END 2022-01-02 21:04 | disposition home or self-care (01) ==
PROVIDERS: Emergency Provider Registered Nurse Emergency; PCP Nurse Practitioner Family
DX: K91.840 Postprocedural hemorrhage of a digestive system organ or structure following a digestive system procedure (principal); Z79.01 Long term (current) use of anticoagulants
CPT/HCPCS: 99283; 85025; 85610

== ENCOUNTER 2022-03-18 09:29 | Outpatient (CLI) | payer BC, SELFPAY ==
--- NOTE | 2022-03-18 08:00 | DI.RAD_ITS ---
Exam(s) XR SHOULDER RT COMPLETE 2+V EXAM: XR SHOULDER RT COMPLETE 2+V CLINICAL HISTORY: right shoulder pain. TECHNIQUE: 2D digital imaging was performed. Two views. COMPARISON: No exams were available for comparison FINDINGS: BONES: No acute fracture is present. No bony destructive lesion is seen. Bone island humeral head. Mild spurring at AC joint and tip of the acromion as well as inferior glenoid. JOINTS: No dislocation present. Normal glenohumeral joint space. SOFT TISSUE: Normal. Sternal wires. IMPRESSION: Mild degenerative changes DATA REPOSITORY: RADIATION DOSE DELIVERED:
== END 2022-03-18 09:30 | disposition home or self-care (01) ==
LOC: DIORS 09:29
PROVIDERS: PCP Nurse Practitioner Family; Referring Provider Nurse Practitioner Family; Visit Provider Student in an Organized Health Care Education/Training Program
DX: M25.511 Pain in right shoulder (principal); M75.81 Other shoulder lesions, right shoulder
CPT/HCPCS: 73030

== ENCOUNTER 2023-03-17 16:59 | Emergency (ER) | payer BC, SELFPAY ==
[2023-03-17 17:04] VITALS: BP 149/99; PULSE 65; RESP 18; TEMP 37.1; O2SAT 100
--- NOTE | 2023-03-17 17:30 | DI.RAD_ITS ---
Exam(s) XR HAND LT COMPLETE EXAM: XR HAND LT COMPLETE CLINICAL HISTORY: trauma. TECHNIQUE: 2D digital imaging was performed of the left hand. Three views were obtained. AP, later al and oblique views were obtained. COMPARISON: No exams were available for comparison FINDINGS: BONES: No acute fracture is present. No bony destructive lesion is seen. JOINTS: No dislocation present. SOFT TISSUE: Normal. IMPRESSION: Unremarkable radiographs of the left hand. DATA REPOSITORY: RADIATION DOSE DELIVERED:
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
[2023-03-17] MEDS: Ibuprofen 600 MG TAB PO (18:11)
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
--- NOTE | 2023-03-21 17:46 | NUR.NOTE ---
Nursing Note:Accessed chart for [facility] billing purposes.
== END 2023-03-17 21:23 | disposition home or self-care (01) ==
PROVIDERS: Emergency Provider Student in an Organized Health Care Education/Training Program; PCP Nurse Practitioner Family
DX: S69.92XA Unspecified injury of left wrist, hand and finger(s), initial encounter (principal); W29.8XXA Contact with other powered hand tools and household machinery, initial encounter
CPT/HCPCS: 99283; 73130

== ENCOUNTER 2023-04-05 12:30 | Emergency (ER) | payer BC, SELFPAY ==
[2023-04-05 12:35] VITALS: BP 151/96; PULSE 80; RESP 20; TEMP 36.9; O2SAT 99
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
[2023-04-05 13:15] LABS: Abs Immature Grans 0.05 10^3/uL (0.0-0.06); Absolute Lymphocyte Count 0.94 10^3/uL (1.2-3.4); Absolute Monocyte Count 0.58 10^3/uL (0.1-0.8); Basophils % 0.2; Eosinophils % 0.2; HCT 44.1 % (40.0-50.0); HGB 15.1 g/dL (13.5-17.5); Immature Grans % 0.4; Lymphocytes % 7.8; MCH 31.3 pg (27.0-33.0); MCHC 34.2 % (32.0-36.0); MCV 91 fL (80-95); MPV 10.1 fL (8.0-11.0); Monocytes % 4.8; Neutrophils % 86.6; Platelet Count 280 10^3/uL (130-400); RBC 4.83 10^6/uL (4.36-5.78); RDW 12.3 % (11.8-14.1); RDW-SD 40.9 fL; WBC 12.01 10^3/uL (4.4-10.8)
[2023-04-05 13:16] LABS: Absolute Basophil Count 0.02 10^3/uL (0.0-0.2); Absolute Eosinophil Count 0.02 10^3/uL (0.0-0.7)
[2023-04-05 13:46] LABS: Prothrombin Time 43.4 sec (9.3-11.0)
[2023-04-05 13:48] LABS: INR 4.3 (0.9-1.1)
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
[2023-04-05 15:34] VITALS: PULSE 80; RESP 16; O2SAT 98
== END 2023-04-05 15:35 | disposition home or self-care (01) ==
PROVIDERS: Emergency Provider Physician Assistant; PCP Nurse Practitioner Family
DX: S52.021A Displaced fracture of olecranon process without intraarticular extension of right ulna, initial encounter for closed fracture (principal); M70.21 Olecranon bursitis, right elbow; R79.1 Abnormal coagulation profile; M25.721 Osteophyte, right elbow; S09.90XA Unspecified injury of head, initial encounter; V19.3XXA Pedal cyclist (driver) (passenger) injured in unspecified nontraffic accident, initial encounter
CPT/HCPCS: 99283; 70450; 73080; 85025; 85610

== ENCOUNTER 2023-04-21 11:06 | Outpatient (CLI) | payer BC, SELFPAY ==
--- NOTE | 2023-04-21 10:45 | DI.RAD_ITS ---
Exam(s) XR ELBOW RT COMPLETE EXAM: XR ELBOW RT COMPLETE CLINICAL HISTORY: F/U FRACTURE. TECHNIQUE: 2D digital imaging was performed. COMPARISON: CR,XR XR ELBOW RT COMPLETE from 04/05/2023 FINDINGS: 3 views No evidence of acute fracture nor obvious joint effusion. Again noted is marked swelling of the olec ranon bursa. A large olecranon spur is again noted which exhibits is subtle nondisplaced line, possi nasrin fracture. No other osseous lines identified. Radial head and neck appear unremarkable. No dege nerative changes. No loose intra-articular bodies evident. Epicondyles unremarkable. IMPRESSION: Again noted is diffuse prominent swelling posteriorly over the olecranon and there is subtle faint fr acture line (nondisplaced) of the electrode on osteophyte. No elbow joint effusion noted. No radiographic evidence of osteomyelitis. DATA REPOSITORY: RADIATION DOSE DELIVERED:
== END 2023-04-21 11:07 | disposition home or self-care (01) ==
LOC: DIORS 11:06
PROVIDERS: PCP Nurse Practitioner Family; Referring Provider Nurse Practitioner Family; Visit Provider Physician Assistant
DX: S52.024A Nondisplaced fracture of olecranon process without intraarticular extension of right ulna, initial encounter for closed fracture (principal); M25.721 Osteophyte, right elbow; X58.XXXA Exposure to other specified factors, initial encounter
CPT/HCPCS: 73080

== ENCOUNTER 2023-05-12 02:17 | Outpatient (CLI) | payer BC, SELFPAY ==
--- NOTE | 2023-05-12 07:15 | DI.MRI_ITS ---
Exam(s) MR LOWER JOINT RT WO EXAM: MR LOWER JOINT RT WO CLINICAL HISTORY: pain, knee effusion, RT KNEE PAIN, M25.561. TECHNIQUE: Multiplanar multisequence MRI was performed. COMPARISON: No exams were available for comparison FINDINGS: BONES: There is no fracture or contusion pattern. JOINTS: No joint effusion is present. Articular cartilage: Patellofemoral joint: Thinning and mild irregularity of the patellar cartilage at the medial facet. Medial femoral tibial joint: Articular cartilage is unremarkable. Lateral femoral tibial joint: Articular cartilage is unremarkable. TENDONS: Extensor mechanism: Small enthesophyte at superior pole of patella. Quadriceps tendon and patellar t endon appear intact. Medial retinaculum: Unremarkable. Lateral retinaculum: Unremarkable. Popliteus: Unremarkable. MUSCLES: Unremarkable. MENISCI: The medial meniscus shows abnormal linear signal in the body and posterior horn with mild i rregularity at the apex. There are small adjacent loculated fluid collections could represent menisca l cysts or ganglia. The insinuate through the medial collateral ligament. . The lateral meniscus is unremarkable. SOFT TISSUES: Anterior subcutaneous edema. Focal fluid anterior to the patella could indicate prepat ellar bursitis or could be the result of trauma.. LIGAMENTS: Anterior Cruciate: Unremarkable. Posterior Cruciate: Unremarkable. Medial Collateral:Unremarkable. Lateral Collateral: Unremarkable. IMPRESSION: Tear of the posterior horn and body of the medial meniscus with adjacent multiple small meniscal cyst s. Significant anterior subcutaneous edema with focal fluid collection seen in anterior to the patella. Prevertebral patellar bursitis versus posttraumatic. Chondromalacia of the medial patellar facet. DATA REPOSITORY:
== END 2023-05-12 02:37 ==
LOC: DI 02:20
PROVIDERS: PCP Nurse Practitioner Family; Visit Provider Physician Assistant
DX: M23.022 Cystic meniscus, posterior horn of medial meniscus, left knee (principal); M79.89 Other specified soft tissue disorders; M22.42 Chondromalacia patellae, left knee
CPT/HCPCS: 73721

== ENCOUNTER 2023-08-17 00:58 | Outpatient (CLI) | payer BC, SELFPAY ==
[2023-08-17 12:37] LABS: Hemoglobin A1C 5.4 % (<5.7)
[2023-08-17 12:47] LABS: Anion Gap 6.7 mmol/L (3-11); BUN 16 mg/dL (7-18); CO2 28.3 mmol/L (21.0-32.0); CREATININE 0.9 mg/dL (0.70-1.30); Calcium 9.2 mg/dL (8.5-10.1); Calculated LDL 152 mg/dL (<100); Chloride 105 mmol/L (98-107); Cholesterol 230 mg/dL (<200); Estimated GFR 108.01 (mL/min/1.73m2); Glucose 97 mg/dL (74-106); HDL Cholesterol 54 mg/dL (40-60); Potassium 4.9 mmol/L (3.5-5.1); Sodium 140 mmol/L (136-145); TSH (W/Ref FT4) 1.54 uIU/mL (0.36-3.74); Triglyceride 122 mg/dL (<150)
== END 2023-08-17 00:59 | disposition home or self-care (01) ==
PROVIDERS: PCP Nurse Practitioner Family; Visit Provider Nurse Practitioner Family
DX: Z00.00 Encounter for general adult medical examination without abnormal findings (principal)
CPT/HCPCS: 36415; 80048; 80061; 83036; 84443

== ENCOUNTER 2023-08-20 02:34 | Outpatient (CLI) | payer BC, SELFPAY ==
[2023-08-20 15:39] LABS: Prothrombin Time 30.3 sec (9.1-11.1)
[2023-08-20 15:40] LABS: INR 3.3 (0.9-1.1)
== END 2023-08-20 02:35 | disposition home or self-care (01) ==
LOC: LBO 02:34
PROVIDERS: PCP Nurse Practitioner Family; Visit Provider Nurse Practitioner Family
DX: Z79.01 Long term (current) use of anticoagulants (principal)
CPT/HCPCS: 36415; 85610

== ENCOUNTER 2024-03-15 06:14 | Day surgery (SDC) | payer BC, SELFPAY ==
[2024-03-15 06:15] VITALS: BP 119/87; PULSE 63; RESP 16; TEMP 36.5; O2SAT 97
--- NOTE | 2024-03-15 06:43 | ANES.PREOP_ITS ---
General Info Date of Service Date Performed: 03/15/24 Height: 6 ft Weight: 100.301 kg Body Mass Index (BMI): 29.9 Surgical Procedure: Operation Date: 03/15/24 07:35 Proposed Procedure Side Surgeon mickey Mcgovern MD Meds Allergies and Home Medications Allergies Allergy/AdvReac Type Severity Reaction Status Date / Time No Known Allergies Allergy Verified 03/15/24 06:29 Home Medication Medication Instructions Recorded aspirin 81 mg chewable tablet 81 mg PO DAILY 03/29/18 bisacodyl 5 mg tablet,delayed 5 mg PO ONCE #4 tabs 02/25/24 release (Dulcolax (bisacodyl)) polyethylene glycol 3350 17 17 g PO ONCE #238 grams 02/25/24 gram/dose oral powder metoprolol tartrate 100 mg tablet 100 mg PO BID #180 tabs 02/26/24 warfarin 5 mg tablet See Rx Instructions PO DAILY #135 02/26/24 tabs enoxaparin 100 mg/mL subcutaneous 100 mg subcut DIRECTED 03/11/24 syringe Current Visit Medications: Current Medications Generic Name Dose Route Start Last Admin Trade Name Freq PRN Reason Stop Dose Admin Ringer's Solution 1,000 mls @ 80 mls/hr 03/15/24 06:00 IV 03/15/24 23:59 [facility] IV Miscellaneous Supplies 1 each 03/15/24 06:00 Iv Access IV 03/15/24 23:59 DIRECTED LISSET Sodium Chloride 0 ml 03/15/24 06:00 Normal Saline Flush 10 Ml Syr IV 03/15/24 23:59 PRN PRN Sodium Chloride 0 ml 03/15/24 06:00 Normal Saline 10 Ml Vial IJ 03/15/24 23:59 DIRECTED PRN Sterile Water 0 ml 03/15/24 06:00 Water,Injection,Sterile 10 Ml Vial IJ 03/15/24 23:59 DIRECTED PRN PFSH Active Problems Active Problems: Problem Status Onset Code Chronic anticoagulation Z79.01 Obstructive sleep apnea G47.33 Rosacea L71.9 Prediabetes R73.03 Hyperlipidemia E78.5 Traumatic tear of medial meniscus of right knee S83.241A Lipoma of right lower extremity D17.23 Medical History Medical History (Updated 03/15/24 @ 06:43 by Velia Lobo) Shoulder impingement syndrome right Aortic valvular disease Congenital bicuspid aortic valve, aortic stenosis, aortic insufficiency, 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 Endocarditis prophylaxis needed S/P vasectomy (08/02/10) Tobacco Smoking/Tobacco Use Status: Former Tobacco Use Smokeless tobacco user: chewing tobacco Passive smoking exposure: Yes Second hand exposure: Yes Alcohol Alcohol Intake: current Alcohol intake frequency: a few times a week Alcohol type: beer Substance Use Substance use: Never Substance use type: does not use Vital Signs and Lab Results Lab Results Blood Type / Crossmatch: 2 No Data to Display Complete Blood Count: No Data to Display Complete Metabolic Panel: No Data to Display Liver Function Panel: No Data to Display Coagulation Panel: INR International Normalized Ratio 3.0 (0.9-1.1) H 02/26/24 08: 42 Cardiac Panel: No Data to Display Arterial Blood Gas: No Data to Display Venous Blood Gas: No Data to Display Pancreas Panel: No Data to Display Thyroid Panel: No Data to Display Infectious Disease: No Data to Display Blood Cultures: No Data to Display Toxicology Panel: No Data to Display Imaging and Studies Imaging and Studies Study information below may be from another EMR and interpreted by another provider. Please see original notes in EMR for more complete details. Echocardiogram Summary: Patient Name: SAMINA JOHNSTON Unit #: [id number] Loc: DI Ordering Provider: Amarjit Henning M.D. Status: REG I Primary Care Provider: Amarjit Henning M.D. Date of Exam: 11/20/17 Sex: M : 1980 Age: 37 Exam(s) [id number] US:Echocardiogram Heart *[facility]* *[facility]* [address] [place] [address] Date of study: 11/20/2017 Transthoracic Echocardiography M-mode, complete 2D, complete spectral Doppler, and color Doppler *STUDY CONCLUSIONS* Summary: 1. Left ventricle: The cavity size was normal. Wall thickness was increased in a pattern of mild LVH. Systolic function was normal. The estimated ejection fraction was 60-65%. Wall motion was normal; there were no regional wall motion abnormalities. 2. Right ventricle: The cavity size was normal. Systolic function was normal. 3. Left atrium: The atrium was mildly dilated. 4. Aortic valve: Functionally bicuspid (possible fusion of right and non-coronary cusps); moderately thickened leaflets. Valve mobility was restricted. Transvalvular velocity was increased. There was moderate stenosis. There was moderate to severe regurgitation directed eccentrically in the LVOT and towards the mitral anterior leaflet. Peak velocity ratio of LVOT to aortic valve: 0.29. 5. Ascending aorta: The ascending aorta was severely dilated (50 mm). 6. Atrial septum: Doppler showed an atrial level shunt, in the baseline state. *PATIENT PRESENTATION* Height: 182.9cm ((72in) ) S/D Pressure: 142 / 97 Weight: 93kg ((204.6lb) ) BSA: 2.19m^2 Test start time: 08:10 AM. Test stop time: 09:20 AM. PERFORMING Unknown ORDERING Amarjit Henning REFERRING Amarjit Henning PERFORMING [facility] J[employer]IOR NET DEVELOPER Melani Santana *PROCEDURE DATA* Procedure information: This study was interpreted by [facility]. Pertinent images and digital data are archived for permanent storage and are available for subsequent review. Comparison was made to the study of 09/21/2014. Study status: Routine. Transthoracic echocardiography. M-mode, complete 2D, complete spectral Doppler, and color Doppler. A Transthoracic Echocardiogram was performed. Scanning was performed from the parasternal, apical, subcostal, and suprasternal notch acoustic windows. Images were obtained using an MIT [id number] cardiac ultrasound machine. Image quality was adequate. Study completion: The patient tolerated the procedure well. There were no complications. History: PMH: Rheumatic aortic stenosis. *CARDIAC ANATOMY* Left ventricle: The cavity size was normal. Wall thickness was increased in a pattern of mild LVH. Systolic function was normal. The estimated ejection fraction was 60-65%. Wall motion was normal; there were no regional wall motion abnormalities. Findings consistent with diastolic dysfunction. There was no evidence of elevated ventricular filling pressure by Doppler parameters. Aortic valve: Functionally bicuspid (possible fusion of right and non-coronary cusps); moderately thickened leaflets. Valve mobility was restricted. Doppler: Transvalvular velocity was increased. There was moderate stenosis. There was moderate to severe regurgitation directed eccentrically in the LVOT and towards the mitral anterior leaflet. Valve area (VTI): 1.3cm^2. Indexed valve area (VTI): 0.6cm^2/m^2. Peak velocity ratio of LVOT to aortic valve: 0.29. Valve area (Vmax): 1.1cm^2. Indexed valve area (Vmax): 0.5cm^2/m^2. Mean gradient (S): 30mm Hg. Peak gradient (S): 58.4mm Hg. Aorta: Aortic root: The aortic root was normal in size. Ascending aorta: The ascending aorta was severely dilated (50 mm). Mitral valve: Structurally normal valve. Mobility was not restricted. Doppler: Transvalvular velocity was within the normal range. There was no evidence for stenosis. There was no significant regurgitation. Valve area by pressure half-time: 3cm^2. Indexed valve area by pressure half-time: 1.3cm^2/m^2. Left atrium: The atrium was mildly dilated. Atrial septum: Doppler showed an atrial level shunt, in the baseline state. Right ventricle: The cavity size was normal. Systolic function was normal. Pulmonic valve: Poorly visualized. Doppler: Transvalvular velocity was within the normal range. There was no evidence for stenosis. There was trivial regurgitation. Tricuspid valve: Structurally normal valve. Doppler: Transvalvular velocity was within the normal range. There was no evidence for stenosis. There was trivial regurgitation. Pulmonary artery: Poorly visualized. Pulmonary systolic pressure was within the normal range, in the range of 25mm Hg to 30mm Hg. Right atrium: The atrium was dilated. Pericardium: There was no pericardial effusion. Systemic veins: Inferior vena cava: The vessel was normal in size. The respirophasic diameter changes were in the normal range (greater than or equal to 50%), consistent with normal central venous pressure. Measurements Left ventricle Value Reference LV ID, ED, PLAX 4.9 cm 3.5 - 6.0 LV ID, ES, PLAX 3.6 cm 2.1 - 4.0 LV PW thickness, ED, PLAX 1.2 cm LV end-diastolic volume, 1-p A2C 142 ml LV ejection fraction, 1-p A2C 70 % LV end-diastolic volume, 1-p A4C 132 ml LV ejection fraction, 1-p A4C 59 % Ventricular septum Value Reference IVS thickness, ED, PLAX 1.1 cm LVOT Value Reference LVOT ID, A-P 2.2 cm LVOT area 3.8 cm^2 LVOT peak velocity, S 1.11 m/sec LVOT VTI, S 29.7 cm LVOT mean gradient, S 2.9 mm Hg Aortic valve Value Reference Aortic valve peak velocity, S 3.8 m/sec Aortic valve mean velocity, S 0.03 m/sec Aortic mean gradient, S 30 mm Hg Aortic peak gradient, S 58.4 mm Hg Aortic valve area, VTI 1.3 cm^2 Velocity ratio, peak, LVOT/AV 0.29 Aortic valve area, peak velocity 1.1 cm^2 Aorta Value Reference Ascending aorta ID, A-P, S 5.0 cm Aortic root ID, ED, MM 3.4 cm 2.0 - 3.7 Left atrium Value Reference LA area, ES, A4C 23 cm^2 8.8 - 23.4 LA volume/bsa, S 37 ml/m^2 LA/aortic root ratio 1.15 Mitral valve Value Reference Mitral E-wave peak velocity 0.64 m/sec Mitral A-wave peak velocity 0.76 m/sec Mitral deceleration time (H) 257 ms 150 - 230 Mitral pressure half-time 75 ms Mitral E/A ratio, peak 0.84 Mitral valve area, PHT, DP 3 cm^2 Tricuspid valve Value Reference Tricuspid regurg peak velocity 2.4 m/sec Tricuspid peak RV-RA gradient 23.4 m Anesthesia Assessment and Plan Anesthesia History Personal History: No History of Anesthesia Complications Family History: No Family History of Anesthesia Complications Exercise Tolerance Exercise Tolerance: Metabolic Equivalents>4 Pertinent Negatives Pertinent Negatives: No Symptoms of GERD, No Major Pulmonary Symptoms or Complaints and No History of CVA/TIA Cardiac & Pulmonary Exam Cardiac Exam: Normal S1/S2 Heart Sounds (Click present from AVR) Pulmonary Exam: Clear Bilateral Breath Sounds Implantable Cardiac Device Does patient have a Pacemaker or an ICD?: No Airway Exam Known Difficult Airway: No Mallampati Class: 3 Mouth Opening: Normal (> 3cm) Thyromental Distance: Greater than 3 cm Neck Range of Motion: Full ROM Neck Circumference: Normal Teeth Condition: Normal Dentition ASA Classification ASA Score: ASA 2 Emergency Case?: No NPO Status NPO Status: NPO Clears >2 hours, Solids >8 hours Anesthesia Plan Resuscitation Status: Full Code Anesthesia Technique: General Anesthesia Airway Planned: Natural Airway Monitors Used: Standard Monitors Preoperative Comments:: Aortic valve replacement 2018
[2024-03-15] MEDS: Lactated Ringers 1,000 ML 80 ML IV (07:02)
[2024-03-15 07:15] VITALS: BMI 29.9
[2024-03-15 07:59] VITALS: BP 122/85; PULSE 67; RESP 16; TEMP 36.7; O2SAT 97
--- NOTE | 2024-03-15 08:03 | W.COLOREPORT ---
Date of service: 03/15/24 Time of Service: 08:03 Colonoscopy Report Procedure Description: PROCEDURES PERFORMED: 1. Colonoscopy PREOPERATIVE DIAGNOSIS: Screening colonoscopy POSTOPERATIVE DIAGNOSIS: Minimal grade 1 internal hemorrhoids SURGEON: Rubia Mcgovern MD INDICATION FOR PROCEDURE: Patient is a 43-year-old man who has never had a colonoscopy. He has an isolated aunt who had colon cancer. He has no symptoms. FINDINGS: Normal terminal ileum. No polyps. No diverticular disease. Minimal grade 1 internal hemorrhoids. SURVEILLANCE interval/FOLLOW-UP: 10 years (isolated aunt is not increased risk) SPECIMENS: None EBL: Minimal COMPLICATIONS: None QUALITY of prep: Excellent Procedure in detail: The patient gave written consent and was in agreement with the indications, the potential risks as well as the benefits of the procedure. They were taken to the endoscopy suite and laid in the left lateral decubitus position. A timeout was performed and anesthesia was administered which was tolerated well. I started the procedure. Digital rectal and visual examination was performed and grossly within normal limits. A well-lubricated flexible colonoscope was then introduced and passed without any notable difficulty all the way to the cecum identified by the ileocecal valve and the appendiceal orifice. the terminal ileum was intubated and looked normal. The scope was then slowly withdrawn with the above-noted findings. The patient tolerated the procedure well and was taken to the PACU in hemodynamically stable condition.
--- NOTE | 2024-03-15 08:04 | W.PM.DSUDISC ---
Date of service: 03/15/24 Time of Service: 08:04 Discharge Plan Disposition Patient Disposition: Home Condition: Good Discharge Details Attending Provider: Joe Mcgovern Primary Care Provider: Umu Pascual Home Meds and New Rx's Prescriptions: No Action warfarin 5 mg tablet See Rx Instructions PO DAILY Qty: 135 4RF Protocol: Dose Management Condition: Thursday Dose/Route: 7.5 mg Instruction: 1.5 x 5 mg tablets Condition: Thursday Dose/Route: 5 mg Instruction: 1 x 5 mg tablet Condition: Thursday Dose/Route: 7.5 mg Instruction: 1.5 x 5 mg tablets Condition: Thursday Dose/Route: 5 mg Instruction: 1 x 5 mg tablet Condition: Dose/Route: 7.5 mg Instruction: 1.5 x 5 mg tablets Condition: Thursday Dose/Route: 5 mg Instruction: 1 x 5 mg tablet Condition: Thursday Dose/Route: 7.5 mg Instruction: 1.5 x 5 mg tablets Protocol Text: Adjustment Start Date: Thursday02/26/24 INR Value: 3.0 INR Date: 02/26/24 Recheck Date: 03/27/24 Rx Instructions: Take as directed by PCP PO DAILY; metoprolol tartrate 100 mg tablet 100 mg PO BID Qty: 180 3RF bisacodyl [Dulcolax (bisacodyl)] 5 mg tablet,delayed release (DR/EC) 5 mg PO ONCE Qty: 4 0RF Rx Instructions: Take per colonoscopy instructions provided by ordering providers office polyethylene glycol 3350 17 gram/dose powder 17 g PO ONCE Qty: 238 0RF Rx Instructions: Take per colonoscopy instructions provided by ordering providers office aspirin 81 MG tablet,chewable 81 mg PO DAILY enoxaparin 100 mg/mL syringe 100 mg subcut DIRECTED Patient Comments: INJECT 100MG UNDER SKIN EVERY 12 HRS. FOR BRIDGING FOR COLONOSCOPY X8DAYS; HOLD WARFARINX4 DAYS, BEGIN ENOXAPARIN 4DAYS PRIOR TO SCOPE. THIS Discharge Instructions Additional Instructions: FINDINGS: Your colon and rectum are healthy. No polyps or cancerous lesions were found. The isolated history in your grandmother is not considered a significant increased risk and you can do another colonoscopy in 10 years. Restart your Coumadin and your Lovenox tonight. Activity:: Activity as Tolerated Diet:: As Tolerated
[2024-03-15 08:25] VITALS: BP 121/87; PULSE 65; RESP 16; TEMP 36.4; O2SAT 98
--- NOTE | 2024-03-15 08:46 | W.ANESPOSTOP ---
Postoperative Evaluation Date, Time and Location Date Performed: 03/15/24 Time Performed: 08:07 Patient Location: Day Surgery Unit Vital Signs Most Recent Imported Vital Signs: Most Recent Vital Signs Temp Pulse Resp BP Pulse Ox 36.4 C L 65 16 121/87 98 03/15/24 08:25 03/15/24 08:25 03/15/24 08:25 03/15/24 08:25 03/15/24 08:25 Pain Score Most Recent Pain Score: Most Recent Pain Score Pain Level 0 03/15/24 08:25 Assessment Mental Status: Awake (Alert & Oriented to Patient Baseline) Airway and Respiratory Function: Patent airway with normal (patient baseline) respiratory exam Cardiovascular Function: Hemodynamically Stable Hydration Status: Adequately Hydrated Nausea & Vomiting: No Nausea or Vomiting Pain: Pt. Denies Any Pain Peripheral Nerve Block: Patient did not receive a nerve block
== END 2024-03-15 08:46 | disposition home or self-care (01) ==
PROVIDERS: PCP Nurse Practitioner Family; Visit Provider Student in an Organized Health Care Education/Training Program
PROC: 0DJD8ZZ Inspection of Lower Intestinal Tract, Via Natural or Artificial Opening Endoscopic (ICD-10-PCS; CPT 45378; principal; 2024-03-15 07:30)
DX: Z12.11 Encounter for screening for malignant neoplasm of colon (principal); G47.33 Obstructive sleep apnea (adult) (pediatric); Z95.4 Presence of other heart-valve replacement; K64.0 First degree hemorrhoids
CPT/HCPCS: 45378; 00123; J2704

== ENCOUNTER 2025-03-27 00:42 | Outpatient (CLI) | payer OTHER, SELFPAY ==
[2025-03-27 16:15] LABS: Abs Immature Grans 0.01 10^3/uL (0.0-0.06); Absolute Basophil Count 0.03 10^3/uL (0.0-0.2); Absolute Eosinophil Count 0.09 10^3/uL (0.0-0.7); Absolute Lymphocyte Count 1.47 10^3/uL (1.2-3.4); Absolute Monocyte Count 0.65 10^3/uL (0.1-0.8); Absolute Neutrophil Count 4.62 10^3/uL (1.2-6.7); Basophils % 0.4 %; Eosinophils % 1.3 %; HCT 41.2 % (40.0-50.0); HGB 13.9 g/dL (13.5-17.5); Immature Grans % 0.1 %; Lymphocytes % 21.4 %; MCH 31.2 pg (27.0-33.0); MCHC 33.7 % (32.0-36.0); MCV 92 fL (80-95); Monocytes % 9.5 %; Neutrophils % 67.3 %; Platelet Count 237 10^3/uL (130-400); RBC 4.46 10^6/uL (4.36-5.78); RDW 12.1 % (11.8-14.1); RDW-SD 41.2 fL; WBC 6.87 10^3/uL (4.4-10.8)
[2025-03-27 17:16] LABS: Iron 69 ug/dL (65-175); Total Iron Binding Capacity 318 ug/dL (250-450)
[2025-03-27 17:45] LABS: ALT 37 U/L (16-63); AST 16 U/L (15-37); Alkaline Phosphatase 98 U/L (46-116); Anion Gap 5.7 mmol/L (3-11); BUN 16 mg/dL (7-18); Bilirubin, Total 0.4 mg/dL (0.2-1.0); CO2 31.3 mmol/L (21.0-32.0); CREATININE 0.9 mg/dL (0.70-1.30); Calcium 8.8 mg/dL (8.5-10.1); Chloride 103 mmol/L (98-107); Estimated GFR 106.67 (mL/min/1.73m2); Ferritin 85 ng/mL (26-388); Glucose 83 mg/dL (74-106); Potassium 4.2 mmol/L (3.5-5.1); Sodium 140 mmol/L (136-145); TSH (W/Ref FT4) 2.36 uIU/mL (0.36-3.74); Total Protein 7.1 g/dL (6.4-8.2); Vitamin B12 559 pg/mL (193-986); Vitamin D 25 Total 21 ng/mL (30-100)
[2025-03-28 10:17] LABS: Transferrin 253 mg/dL (201-352)
== END 2025-03-27 00:43 | disposition home or self-care (01) ==
LOC: LBO 00:43
PROVIDERS: PCP Nurse Practitioner Family; Visit Provider Nurse Practitioner Family
DX: D50.9 Iron deficiency anemia, unspecified (principal)
CPT/HCPCS: 36415; 80053; 82306; 82607; 82728; 83540; 83550; 84443; 84466; 85025

== ENCOUNTER 2025-04-03 15:34 | Outpatient (REF) | payer OTHER, SELFPAY ==
[2025-04-03 12:36] LABS: Sperm(Post-Vasectomy) Absent
== END 2025-04-03 15:35 | disposition home or self-care (01) ==
LOC: LBN 15:34
PROVIDERS: PCP Nurse Practitioner Family; Visit Provider Nurse Practitioner Family
DX: Z98.52 Vasectomy status (principal)
CPT/HCPCS: 89240; 89310; 89321